=== PATIENT | female | born 1995 | race Caucasian/White ===

== ENCOUNTER 2016-10-31 20:25 | Emergency (ER) | payer OTHER ==
[2016-10-31 21:46] LABS: ABSOLUTE EOSINOPHILS # (AUTO) 0.1 10^3/uL (0.0-0.6); ABSOLUTE LYMPHOCYTES (AUTO) 1.9 10^3/uL (0.5-4.7); ABSOLUTE MONOCYTES (AUTO) 0.7 10^3/uL (0.1-1.4); ABSOLUTE NEUT (AUTO) 10.1 10^3/uL (1.7-8.2); BASOPHILS % (AUTO) 0.2 % (0-2); EOSINOPHILS % (AUTO) 0.6 % (0-6); HEMATOCRIT 42.4 % (36.0-47.0); HEMOGLOBIN 14.2 g/dL (12.0-15.5); HGB HCT DIFFERENCE 0.2; LYMPHOCYTES % (AUTO) 15.1 % (13-45); MEAN CORPUSCULAR HGB CONC 33.5 g/dL (32.0-36.0); MEAN CORPUSCULAR VOLUME 93 fl (80-97); MONOCYTES % (AUTO) 5.8 % (3-13); RED BLOOD COUNT 4.58 10^6/uL (3.72-5.28); RED CELL DISTRIBUTION WIDTH 12.7 % (11.5-14.0); SEGMENTED NEUTROPHILS % (AUTO) 78.3 % (42-78); WHITE BLOOD COUNT 12.9 10^3/uL (4.0-10.5)
[2016-10-31] MEDS ORDERED: NORMAL SALINE 1000 ML 1,000 ML IV ONE (21:49)
--- NOTE | 2016-10-31 21:51 | ER Document Report ---
ED Medical Screen (RME) - General Chief Complaint: Passed Out Prior to Arrival Stated Complaint: PASSED OUT Time Seen by Provider: 10/31/16 21:48 Notes: 21-year-old female, chief complaint of passing out. She worked out at the gym, afterwards she went tanning, when she got up from tanning she felt lightheaded and unsteady and then passed out. Her only current complaint is abdominal cramping in her lower abdomen which started yesterday. She has an IUD in place. She denies chest pain, shortness of breath, headache, or dizziness. She states she has passed out several times in the past. TRAVEL OUTSIDE OF THE [place] IN LAST 30 DAYS: No - Related Data Allergies/Adverse Reactions: No Known Allergies Allergy (Verified 10/31/16 20:30) Home Medications: Current Home Medications No Home Medications 10/31/16 [History] Past Medical History Renal/ Medical History: Denies: Hx Peritoneal Dialysis Physical Exam - Vital signs Vitals: Temp Pulse Resp BP Pulse Ox 98.0 F 84 18 135/87 H 100 10/31/16 20:30 10/31/16 20:30 10/31/16 20:30 10/31/16 20:30 10/31/16 20:30 - Cardiovascular Rhythm: Regular. No: Tachycardia Heart sounds: Normal auscultation, S1 appreciated, S2 appreciated - Abdominal Bowel sounds: Normal Tenderness: Nontender. No: Tender, Guarding Course - Re-evaluation Re-evalutation: Called lab and attempted to cancel cardiac enzyme workup which was placed as a protocol for patient before I saw them. - Vital Signs Vital signs: Temp Pulse Resp BP Pulse Ox 98.0 F 84 18 135/87 H 100 10/31/16 20:30 10/31/16 20:30 10/31/16 20:30 10/31/16 20:30 10/31/16 20:30 - Laboratory Result Diagrams: 10/31/16 21:30 10/31/16 21:30 Laboratory results interpreted by me: 10/31/16 21:30 WBC 12.9 H Seg Neutrophils % 78.3 H Absolute Neutrophils 10.1 H
--- NOTE | 2016-10-31 23:31 | ER Document Report ---
ED General - General Chief Complaint: Passed Out Prior to Arrival Stated Complaint: PASSED OUT Time Seen by Provider: 10/31/16 21:48 Notes: Patient is a 21-year-old female presents with complaint of a syncopal episode. Patient says that she was working out today. She says she works out every day and today was less than usual. She went tending afterwards. When she stood up the attending that she felt lightheaded and woozy and passed out. She has had some abdominal cramping. She says her cramping was severe yesterday and today it was mild. Cramping is in the lower abdomen. She says she has an IUD and she is concerned that maybe there is something wrong with IUD. No fevers. No infections. She did use a new pre-workout supplement today but she is unsure what it is. She denies drinking a lot of caffeine. She also mentions that she does not drink as much water she should. She has passed out several times in the past. No chest pain. No shortness of breath. No headache. No focal weakness or numbness. No other complaints at this time. TRAVEL OUTSIDE OF THE [place] IN LAST 30 DAYS: No - Related Data Allergies/Adverse Reactions: No Known Allergies Allergy (Verified 10/31/16 20:30) Home Medications: Current Home Medications No Home Medications 10/31/16 [History] Past Medical History - Social History Smoking Status: Unknown if Ever Smoked Frequency of alcohol use: None Drug Abuse: None Family History: Reviewed & Not Pertinent Renal/ Medical History: Denies: Hx Peritoneal Dialysis Review of Systems - Review of Systems Notes: My Normal Review Basic REVIEW OF SYSTEMS: CONSTITUTIONAL : Denies fever, chills, or sweats. Denies recent illness. EENT: Denies eye, ear, throat, or mouth pain or symptoms. Denies nasal or sinus congestion. CARDIOVASCULAR: Denies chest pain. RESPIRATORY: Denies cough, cold, or chest congestion. Denies shortness of breath, difficulty breathing, or wheezing. GASTROINTESTINAL: Denies abdominal pain. Denies nausea, vomiting, or diarrhea. Denies constipation. Last BM: GENITOURINARY: Denies difficulty urinating, painful urination, burning, frequency, or blood in urine. FEMALE GENITOURINARY: Some uterine cramping. No vaginal bleeding the last few days. MUSCULOSKELETAL: Denies neck or back pain or joint pain or swelling. SKIN: Denies rash or skin lesions. NEUROLOGICAL: Had a syncopal episode. Denies headache. Denies weakness or paralysis or loss of use of either side. Denies problems with gait or speech. Denies sensory or motor loss. ALL OTHER SYSTEMS REVIEWED AND NEGATIVE. Physical Exam - Vital signs Vitals: Temp Pulse Resp BP Pulse Ox 98.0 F 84 18 135/87 H 100 10/31/16 20:30 10/31/16 20:30 10/31/16 20:30 10/31/16 20:30 10/31/16 20:30 - Notes Notes: General Appearance: Well nourished, alert, cooperative, no acute distress, no obvious discomfort. Well-appearing. Vitals: reviewed, See vital signs table. Head: no swelling or tenderness to the head Eyes: PERRL, EOMI, Conjuctiva clear Mouth: No decreasd moisture Lungs: No wheezing, No rales, No rhonci, No accessory muscle use, good air exchange bilaterally. Heart: Normal rate, Regular rythm, No murmur, no rub Abdomen: Normal BS, soft, No rigidity, mild suprapubic abdominal tenderness, No guarding, no rebound, no abdominal masses, no organomegaly Extremities: strength 5/5 in all extremities, good pulses in all extremities, no swelling or tenderness in the extremities, no edema. Skin: warm, dry, appropriate color, no rash Neuro: speech clear, oriented x 3, normal affect, responds appropriately to questions. Renal nerves II through XII are intact. Patient was all extremities without difficulty. No neurologic deficits on exam. Course - Re-evaluation Re-evalutation: 11/01/16 05:56 Patient has what appears to be syncope which I think is related to dehydration. She is 80 ketones in urine. She is working out throughout the day and admits that she was not drink much water. She also has a new pre-workout supplement which I informed her that she needs to review the bottle to make sure that is not caffeine in it. If there is caffeine she should not take it. She was concerned because she has had some crampy type pain since the IUD was placed. We did perform an ultrasound which did not show any evidence of any complications. Encouraged her follow-up closely with a comb capper. I did inform her of the findings of urine atrophy and to follow-up with her comb capper with regards to this and also the discomfort that she has been having since having the IUD in place for the last 6 months. Patient encouraged to return to ER if she has recurrent syncopal episodes or feels unwell. Patient agrees with plan will be discharged home. Dictation of this chart was performed using voice recognition software; therefore, there may be some unintended grammatical errors. - Vital Signs Vital signs: Temp Pulse Resp BP Pulse Ox 98.0 F 84 15 120/87 H 99 10/31/16 20:30 10/31/16 20:30 11/01/16 03:08 11/01/16 03:08 11/01/16 03:08 - Laboratory Result Diagrams: 10/31/16 21:30 11/01/16 00:30 Laboratory results interpreted by me: 10/31/16 10/31/16 21:30 23:40 WBC 12.9 H Seg Neutrophils % 78.3 H Absolute Neutrophils 10.1 H Urine Ketones 80 H Urine Ascorbic Acid 40 H - EKG Interpretation by Me Additional EKG results interpreted by me: 10/31/16 23:30 EKG is reviewed and interpreted by me. EKG shows normal sinus rhythm with rate of [address] segment elevation or depression. No ischemic T-wave inversions. FL interval, QRS duration, QTc intervals are within normal range. No old EKG available for comparison. Discharge - Discharge Clinical Impression: Pelvic pain, Dehydration Syncope Qualifiers: Syncope type: unspecified Qualified Code(s): R55 - Syncope and collapse Condition: Good Disposition: HOME, SELF-CARE Additional Instructions: Please return to the ER immediately if you have worsening pelvic pain, vomiting , or recurrent episodes of passing out. Please eat well and drink well before working out. Please follow-up with a comb capper and bring the results of your ultrasound with you to your appointment. Please inform them of the cramping and irritation if had with the IUD. Forms: Return to Work Referrals: TRE URBINA MD [ACTIVE STAFF] - Follow up in 3-5 days
[2016-11-01 00:02] LABS: APPEARANCE,URINE CLOUDY; BILIRUBIN,URINE NEGATIVE (NEGATIVE); GLUCOSE, URINE NEGATIVE (NEGATIVE); KETONES,URINE 80 mg/dL (NEGATIVE); LEUKOCYTE ESTERASE,URINE NEGATIVE (NEGATIVE); NITRITE,URINE NEGATIVE (NEGATIVE); PROTEIN,URINE NEGATIVE (NEGATIVE); URINE SPECIFIC GRAVITY 1.023; UROBILINOGEN,URINE NEGATIVE mg/dL (<2.0)
--- NOTE | 2016-11-01 01:38 | RADIOLOGY REPORT (SQ) ---
EXAM DESCRIPTION: U/S NON OB PEL W/DOPPLER COMPLETED DATE/TIME: 11/01/2016 12:45 am REASON FOR STUDY: pelvic pain, IUD COMPARISON: None. TECHNIQUE: Dynamic and static grayscale images acquired of the pelvis via transabdominal approach an d recorded on PACS. Additional selected color Doppler and spectral images recorded. LIMITATIONS: None. FINDINGS: UTERUS: Contour normal. No mass. Adequate appearing IUD. ENDOMETRIAL STRIPE: No focal or generalized thickening. No masses. CERVIX: No nabothian cysts. RIGHT OVARY: No abnormal masses. RIGHT OVARY DOPPLER: Normal arterial vascular flow without evidence for torsion. LEFT OVARY: No abnormal masses. 3.3 cm left ovary contains a 2.4 cm cystic component within normal li mits. LEFT OVARY DOPPLER: Normal arterial vascular flow without evidence for torsion. FREE FLUID: Minimal. OTHER: No other significant finding. MEASUREMENTS: UTERUS: 8.4 cm. ENDOMETRIAL STRIPE: 0.2 cm thickness. RIGHT OVARY: 2.9 cm. LEFT OVARY: 3.3 cm. IMPRESSION: No acute findings. IUD. Endometrial atrophy/hypoplasia. TECHNICAL DOCUMENTATION: JOB ID: [id number] [employer]- All Rights Reserved
[2016-11-01 02:03] LABS: ANION GAP 12 (5-19); BLOOD UREA NITROGEN 8 mg/dL (7-20); CALCIUM 10.2 mg/dL (8.4-10.2); CARBON DIOXIDE 25 mmol/L (22-30); CHLORIDE 106 mmol/L (98-107); CREATININE RESULT 0.89 mg/dL (0.52-1.25); GLUCOSE 84 mg/dL (75-110); SODIUM 142.9 mmol/L (137-145)
[2016-11-01 03:14] VITALS: BP 120/87
--- NOTE | 2016-11-01 10:25 | EKG REPORT ---
SEVERITY:- BORDERLINE ECG - SINUS RHYTHM SHORT VT INTERVAL, ACCELERATED AV CONDUCTION : Confirmed by: Maricruz Razo 01-Nov-2016 10:24:36
== END 2016-11-01 03:14 | disposition home or self-care (01) ==
LOC: ER 20:25
DX: R10.2 Pelvic and perineal pain (principal); E86.0 Dehydration; Z97.5 Presence of (intrauterine) contraceptive device
CPT/HCPCS: 93005; 99284; 36415; 82962; 83735; 85025; 81025; 80048; 81001; 76856; 93976; 93010; J7030